=== PATIENT | female | born 1960 | race American Indian/Alaskan Native ===

== ENCOUNTER 2023-06-28 18:30 | Emergency (ER) | payer OTHER ==
[~2023-06-28] VITALS: Ht 175.3 cm; Wt 79.4 kg
== END 2023-06-28 19:45 | disposition home or self-care (01) ==
LOC: ER 18:30
DX: S62.367A Nondisplaced fracture of neck of fifth metacarpal bone, left hand, initial encounter for closed fracture (principal); W01.10XA Fall on same level from slipping, tripping and stumbling with subsequent striking against unspecified object, initial encounter
CPT/HCPCS: 29125; 73130; 99284-25